=== PATIENT | male | born 1955 | race Caucasian/White ===

== ENCOUNTER 2017-08-01 15:34 | Emergency (ER) | payer OTHER ==
[~2017-08-01] VITALS: Ht 175.3 cm; Wt 68.9 kg
--- NOTE | 2017-08-01 15:38 | NUR ---
BBRA 86 FROM HOME FOR LEFT CHEST WALL PAIN X 20 MIN CLEAN UP HELPER BANQUET ETOH+ LAST DRINK X20 MINS AGO. NITRO X 1 ASA 162 GIVEN IN FIELD
[2017-08-01 15:59] LABS: BASOPHILS # (AUTO) 0.2 /CMM (0.0-0.2); BASOPHILS % (AUTO) 1.6 % (0.0-2.0); EOSINOPHILS # (AUTO) 0.6 /CMM (0.0-0.7); EOSINOPHILS % (AUTO) 5.3 % (0.0-6.0); HEMATOCRIT 39 % (39-51); HEMOGLOBIN 12.9 g/dL (13.5-17.5); LYMPHOCYTES # (AUTO) 2.9 /CMM (0.8-4.8); MEAN CORPUSCULAR HEMOGLOBIN 30 PG (26.0-33.0); MEAN CORPUSCULAR HGB CONC 34 g/dl (31.0-36.0); MEAN CORPUSCULAR VOLUME 89 fL (80-96); MONOCYTES # (AUTO) 0.8 /CMM (0.1-1.30); MONOCYTES % (AUTO) 6.8 % (2.0-12.0); NEUTROPHILS # (AUTO) 7.5 /CMM (1.8-8.9); NEUTROPHILS % (AUTO) 62.3 % (43.0-81.0); PLATELET COUNT (AUTO) 338 /CMM (150-450); RDW COEFFICIENT OF VARIATION 13.6 (11.5-15.0); RED BLOOD CELL COUNT(AUTO) 4.31 MIL/uL (4.5-6.0)
[2017-08-01 16:08] LABS: CALCIUM, SERUM 8.2 mg/dL (8.5-10.1); CREATININE 0.8 mg/dL (0.6-1.3); POTASSIUM 3.7 mmol/L (3.5-5.1)
[2017-08-01 16:12] LABS: INR 0.96 (0.87-1.13)
--- NOTE | 2017-08-01 16:13 | NUR ---
Patient does not wish to proceed with medical care recommended by Dr. RAMAN. Patient given information related to possible complications, up to and including , which could occur as a result of leaving the hospital at this time. Patient verbalizes understanding of risks involved due to leaving against medical advice. Patient has signed AMA form.
[2017-08-01 16:16] VITALS: BP 123/78
== END 2017-08-01 16:19 | disposition left against medical advice (07) ==
LOC: ER 15:36
DX: R07.89 Other chest pain (principal); F17.200 Nicotine dependence, unspecified, uncomplicated
CPT/HCPCS: 36415; 80048-TC; 84484-TC; 85025-TC; 85730-TC; A4606; Z7610

== ENCOUNTER 2021-01-20 03:52 | Emergency (ER) | payer OTHER ==
[~2021-01-20] VITALS: Ht 170.2 cm; Wt 72.6 kg
[~2021-01-20 03:52] MED LIST: IBUP-1955 PO
--- NOTE | 2021-01-20 03:55 | NUR ---
BIBSELF C/O L SIDED, NONRADIATING CHEST PAIN. PT RECENTLY SEEN AND DISCHARGED FROM [facility] ER, SEEN FOR BACK PAIN. PT AAOX4. VITAL SIGNS STABLE. RESPIRATIONS EVEN AND UNLABORED. AMBULATORY WITH STEADY GAIT. NO ACUTE DISTRESS NOTED AT THIS TIME. PLACED ON CONTINUOUS PALLET SORTER AND PULSE OX
--- NOTE | 2021-01-20 04:10 | NUR ---
IV INITATED LAC 18G, LABS DRAWN FROM SITE. CERTIFIED PHARMACY TECHNICIAN AT BEDSIDE FOR COLLECTION. IV INTACT AND PATENT, PLACED ON SALINE LOCK
[2021-01-20 04:25] LABS: BASOPHILS % (AUTO) 0.3 % (0.0-2.0); HEMATOCRIT 38 % (39-51); HEMOGLOBIN 12.6 g/dL (13.5-17.5); LYMPHOCYTES # (AUTO) 1.7 /CMM (0.8-4.8); LYMPHOCYTES % (AUTO) 16.3 % (20.0-44.0); MEAN CORPUSCULAR HGB CONC 33 g/dl (31.0-36.0); MEAN CORPUSCULAR VOLUME 90 fL (80-96); MONOCYTES # (AUTO) 1.2 /CMM (0.1-1.30); MONOCYTES % (AUTO) 11.4 % (2.0-12.0); PLATELET COUNT (AUTO) 269 /CMM (150-450); RED BLOOD CELL COUNT(AUTO) 4.24 MIL/uL (4.5-6.0); WHITE BLOOD COUNT (AUTO) 10.5 K/uL (4.3-11.0)
[2021-01-20 04:41] LABS: ALANINE AMINOTRANSFERASE 34 U/L (12-78); ALBUMIN 3.2 g/dL (3.4-5.0); ALKALINE PHOSPHATASE 74 U/L (46-116); ASPARTATE AMINOTRANSFERASE 68 U/L (15-37); BILIRUBIN,DIRECT 0.2 mg/dL (0.0-0.2); BILIRUBIN,TOTAL 0.5 mg/dL (0.2-1.0); CALCIUM, SERUM 8.7 mg/dL (8.5-10.1); CARBON DIOXIDE 25 mmol/L (21-32); CHLORIDE 104 mmol/L (98-107); CREATININE 1.1 mg/dL (0.6-1.3); GLUCOSE 86 mg/dL (74-106); POTASSIUM 3.7 mmol/L (3.5-5.1); SODIUM SERUM 138 mmol/L (136-145); TOTAL PROTEIN, SERUM 7.5 g/dL (6.4-8.2); UREA NITROGEN, BLOOD 17 mg/dL (7-18)
--- NOTE | 2021-01-20 06:13 | NUR ---
Patient given written and verbal discharge instructions. Patient verbalizes understanding of instructions. Patient is ambulatory with steady gait. Refuses offer of longterm placement. Patient given list of available shelters in surrounding area. IV removed. Catheter intact and site benign. Pressure and 4x4 applied to site. No bleeding noted.
[2021-01-20 06:15] VITALS: BP 155/74
== END 2021-01-20 06:15 | disposition home or self-care (01) ==
LOC: ER 03:53
DX: R07.89 Other chest pain (principal); J45.909 Unspecified asthma, uncomplicated; F17.200 Nicotine dependence, unspecified, uncomplicated; Z98.890 Other specified postprocedural states; Z95.818 Presence of other cardiac implants and grafts; Z60.2 Problems related to living alone
CPT/HCPCS: 36415; 71045-TC; 80048-TC; 80076-TC; 84484-TC; 85025-TC

== ENCOUNTER 2022-09-22 15:01 | Inpatient (IN) | payer MEDICARE, OTHER ==
[~2022-09-22] VITALS: Ht 170.2 cm; Wt 74.8 kg
--- NOTE | 2022-09-22 16:06 | NUR ---
BIBRA 858,NEAR SYNCOPAL EPISODE WHILE HAVING HIS PHONE FIXED AT THE MALL. NO HEAD OR NECK INJURY REPORTED. PATIENT PLACED ON MONITOR. AAO X4 . KEPT COMFORTABLE. AWAITING MD ORDERS.
--- NOTE | 2022-09-22 16:07 | NUR ---
IV 20G ESTABLISHED ON RIGHT AC, BLOOD DRAWN AND SENT TO LAB.
--- NOTE | 2022-09-22 16:08 | NUR ---
DR. VELEZ AT BEDSIDE.
[2022-09-22 16:15] LABS: BASOPHILS # (AUTO) 0.1 K/uL (0.0-0.2); BASOPHILS % (AUTO) 1.1 % (0.0-2.0); EOSINOPHILS % (AUTO) 5.2 % (0.0-6.0); HEMATOCRIT 32 % (39-51); LYMPHOCYTES # (AUTO) 2.1 K/uL (0.8-4.8); LYMPHOCYTES % (AUTO) 25.5 % (20.0-44.0); MEAN CORPUSCULAR HGB CONC 31 g/dl (31.0-36.0); MEAN CORPUSCULAR VOLUME 77 fL (80-96); MONOCYTES % (AUTO) 12.8 % (2.0-12.0); NEUTROPHILS # (AUTO) 4.5 K/uL (1.8-8.9); NEUTROPHILS % (AUTO) 55.4 % (43.0-81.0); PLATELET COUNT (AUTO) 275 K/uL (150-450); RED BLOOD CELL COUNT(AUTO) 4.18 MIL/uL (4.5-6.0); WHITE BLOOD COUNT (AUTO) 8.1 K/uL (4.3-11.0)
[2022-09-22 16:24] LABS: CALCIUM, SERUM 8.2 mg/dL (8.5-10.1); CARBON DIOXIDE 24 mmol/L (21-32); CHLORIDE 105 mmol/L (98-107); CREATININE 1.2 mg/dL (0.6-1.3); GLUCOSE 96 mg/dL (74-106); POTASSIUM 4.3 mmol/L (3.5-5.1); SODIUM SERUM 137 mmol/L (136-145); UREA NITROGEN, BLOOD 15 mg/dL (7-18)
[2022-09-22] MEDS ORDERED: PRAMIPEXOLE DI-HCL 0.25 MG TABLET PO ONE (16:30)
[2022-09-22] MEDS ORDERED: PRAMIPEXOLE DI-HCL 0.25 MG TABLET PO SCH (16:30)
[2022-09-22 16:31] LABS: ALANINE AMINOTRANSFERASE 9 U/L (12-78); ALBUMIN 3.5 g/dL (3.4-5.0); ALKALINE PHOSPHATASE 76 U/L (46-116); ASPARTATE AMINOTRANSFERASE 34 U/L (15-37); BILIRUBIN,DIRECT 0.1 mg/dL (0.0-0.2); BILIRUBIN,TOTAL 0.5 mg/dL (0.2-1.0); TOTAL PROTEIN, SERUM 7.4 g/dL (6.4-8.2)
[2022-09-22] MEDS ORDERED: VANCOMYCIN 1 GM in IV D5W 250 ML IV ONE (17:00)
[2022-09-22] MEDS ORDERED: PIPERACILLIN /TAZOBACTAM 3.375 G in IV D5W 50 ML IV ONE (17:00)
--- NOTE | 2022-09-22 17:00 | NUR ---
Pt made aware of plan of care. waiting for room assignment
[2022-09-22] MEDS ORDERED: CARB1TAB21 PO (17:05)
[2022-09-22] MEDS ORDERED: FINA5TAB11 PO (17:05)
[2022-09-22] MEDS ORDERED: PRAM1.5T7 PO (17:05)
[2022-09-22] MEDS ORDERED: PREG-57 PO (17:05)
[2022-09-22] MEDS ORDERED: ROPI1TAB6 PO (17:05)
[2022-09-22] MEDS ORDERED: ALBU8.5H8 INH (17:05)
--- NOTE | 2022-09-22 18:00 | NUR ---
Able to sit up. Voiding freely UO clear- specimen sent. VSS no acute changes. Await admission/room assignment
--- NOTE | 2022-09-22 19:24 | NUR ---
Report to Alejandrina Campos
--- NOTE | 2022-09-22 19:30 | NUR ---
RECEIVED REPORT FROM ANTIONETTE BROWNLEE. PATIENT IS AAOX3. CAME EARLIER WITH CC OF NEAR SYNCOPE. PATIENT IS NOT IN CP DISTRESS. HAS IV LINE ON RIGHT AC G20. AWAITS ADMISSION WITH DX OF SYNCOPE POSS AUTONOMIC VERSIS CARDIAC ARRHYTHMIAS. PATIENT IS ATTACHED MONITOR. VITALS CHECKED.
[2022-09-22] MEDS ORDERED: ZOLPIDEM TARTRATE 5 MG TABLET PO PRN (20:00)
[2022-09-22] MEDS ORDERED: ONDANSETRON HCL/PF 4 MG/2 ML VIAL IVP PRN (20:00)
[2022-09-22] MEDS ORDERED: IV 1/2NS 1000 ML 1,000 ML IV ONE (20:00)
[2022-09-22] MEDS ORDERED: ACETAMINOPHEN 325 MG TABLET PO PRN (20:00)
[2022-09-22] MEDS ORDERED: MAG HYDROX/AL HYDROX/SIMETH 30 ML UDC PO PRN (20:00)
[2022-09-22] MEDS ORDERED: Z GUARD REMEDY 4 OZ OINT TP PRN (20:00)
[2022-09-22] MEDS ORDERED: MAGNESIUM HYDROXIDE 30 ML UDC PO PRN (20:00)
[2022-09-22 20:42] LABS: BILIRUBIN,URINE NEGATIVE (NEGATIVE); COLOR,URINE YELLOW (YELLOW); LEUKOCYTE ESTERASE ,URINE 3+ (NEGATIVE); NITRITE, URINE NEGATIVE (NEGATIVE); PH,URINE 6.5 (5.0-8.0); PROTEIN,URINE 1+ mg/dl (NEGATIVE); UGLUCOSE NEGATIVE (NEGATIVE); UROBILINOGEN,URINE 0.2 EU/dL (0.2)
[2022-09-22 21:00] LABS: BACTERIA,URINE 3+ /HPF (None Seen); RBC,URINE 51-80 /HPF (0-2); WBC,URINE 81-100 /HPF (0-3)
[2022-09-22] MEDS ORDERED: ENOXAPARIN SODIUM 40 MG/0.4 ML DISP.SYRIN SQ SCH (22:00)
[2022-09-22] MEDS ORDERED: AZITHROMYCIN 500 MG in IV D5W 250 ML IV SCH (22:00)
[2022-09-22] MEDS ORDERED: CEFTRIAXONE 1 G in IV D5W 50 ML IV SCH (22:00)
--- NOTE | 2022-09-22 22:04 | NUR ---
REPORT GIVEN TO ANTIONETTE HAMPTON
--- NOTE | 2022-09-22 22:17 | NUR ---
PATIENT REFUSED TO BE ADMITTED. MARY HAIDER AND DAVID HERR MADE AWARE. PATIENT SIGNED AMA FORM.
--- NOTE | 2022-09-22 22:17 | NUR ---
TRIED CALLING CONTACT NUMBERS BUT NOT ANSWERING. PATIENT HAS HIS KEYS WITH HIM BUT PHONE IS NOT WORKING.
[2022-09-22] MEDS ORDERED: LEVO750T46 PO (22:24)
--- NOTE | 2022-09-22 22:30 | NUR ---
[facility] CALLED ETA 60-90 MINUTES
--- NOTE | 2022-09-23 00:32 | NUR ---
REPORT GIVEN TO JERI MORGAN. PATIENT IS DISCHARGING HOME
--- NOTE | 2022-09-23 00:32 | NUR ---
IV CANNULA REMOVED
[2022-09-23 00:33] VITALS: BP 143/94
--- NOTE | 2022-09-23 00:33 | NUR ---
Patient discharged to home in stable condition. Written and verbal after care instructions given. Patient verbalizes understanding of instruction.
[2022-09-23] MEDS ORDERED: PREGABALIN 25 MG CAPSULE PO SCH (05:00)
[2022-09-23] MEDS ORDERED: FINASTERIDE (5 MG) 5 MG TABLET PO SCH (09:00)
[2022-09-23] MEDS ORDERED: CARBIDOPA/LEVODOPA 25/100 MG 1 UDTAB PO SCH (09:00)
[2022-09-23] MEDS ORDERED: PANTOPRAZOLE 40 MG VIAL IV SCH (09:00)
[2022-09-23] MEDS ORDERED: PRAMIPEXOLE DI-HCL 0.25 MG TABLET PO SCH (09:00)
[2022-09-23] MEDS ORDERED: ropiniROLE 0.5 MG TABLET PO SCH (09:00)
== END 2022-09-23 02:00 | disposition home or self-care (01) | DRG 73 ==
LOC: ER 15:07 → TELE 21:34
PROVIDERS: ADMIT Nurse Practitioner Acute Care; ATTEND Nurse Practitioner Acute Care
DX: G90.8 Other disorders of autonomic nervous system (principal); J18.9 Pneumonia, unspecified organism; K86.1 Other chronic pancreatitis; N39.0 Urinary tract infection, site not specified; I49.9 Cardiac arrhythmia, unspecified; Z20.822 Contact with and (suspected) exposure to COVID-19; J45.909 Unspecified asthma, uncomplicated; Z95.1 Presence of aortocoronary bypass graft; I25.10 Atherosclerotic heart disease of native coronary artery without angina pectoris; Z98.84 Bariatric surgery status; Z98.890 Other specified postprocedural states; Z79.51 Long term (current) use of inhaled steroids; Z79.899 Other long term (current) drug therapy; N40.0 Benign prostatic hyperplasia without lower urinary tract symptoms; D50.9 Iron deficiency anemia, unspecified; G20 Parkinson's disease; G62.9 Polyneuropathy, unspecified
CPT/HCPCS: 36415; 71045-TC; 80048-TC; 80076-TC; 81001; 83605-TC; 84484-TC; 85025-TC; 87040-TC; 87081-TC; 87086-TC; C9803; G0378; J0456; J0696; J2543; J3370; J7060